=== PATIENT | male | born 1980 | race Caucasian/White ===

== ENCOUNTER → 2020-04-10 13:46 | Outpatient (BNVA) | payer OTHER, SELFPAY | PROVIDERS: Visit Provider Physician Assistant Medical | DX: M51.26 Other intervertebral disc displacement, lumbar region (principal) | CPT/HCPCS: 99202 ==

== ENCOUNTER → 2020-04-14 14:04 | Outpatient (BNVA) | payer OTHER, SELFPAY | PROVIDERS: Visit Provider Physician Assistant | DX: M51.27 Other intervertebral disc displacement, lumbosacral region (principal) | CPT/HCPCS: 99213 ==

== ENCOUNTER → 2020-04-21 09:12 | Outpatient (BNVA) | payer OTHER, SELFPAY | PROVIDERS: Visit Provider Physician Assistant | DX: S39.012D Strain of muscle, fascia and tendon of lower back, subsequent encounter (principal); X58.XXXD Exposure to other specified factors, subsequent encounter | CPT/HCPCS: 99214 ==

== ENCOUNTER → 2020-05-05 09:15 | Outpatient (BNVA) | payer OTHER, SELFPAY | PROVIDERS: Visit Provider Physician Assistant | DX: S39.92XD Unspecified injury of lower back, subsequent encounter (principal); X58.XXXD Exposure to other specified factors, subsequent encounter | CPT/HCPCS: 99213 ==

== ENCOUNTER → 2020-05-19 09:02 | Outpatient (BNVA) | payer OTHER, SELFPAY | PROVIDERS: Visit Provider Physician Assistant | DX: S39.92XD Unspecified injury of lower back, subsequent encounter (principal); X58.XXXD Exposure to other specified factors, subsequent encounter | CPT/HCPCS: 99213 ==

== ENCOUNTER 2023-01-28 10:55 | Outpatient (AMB) | payer BC, SELFPAY ==
--- NOTE | 2023-01-28 12:14 | MHC.OFFWIV ---
Intake Vital Signs 01/28/23 12:15 Height 5 ft 7 in Weight 169 lb BMI 26.5 BP 100/66 Blood Pressure Location Rt brachial Position Sitting Pulse 68 Pulse Source Pulse Oximeter Temp 97.8 F Temp Source Oral Pulse Oximetry (%) 97 Oxygen Delivery Method Room Air Intake Visit Reasons: EP, Left eye itchiness, swelling Intake Note: Pt is here today c/o Lt eye itchiness and swollen Patient Tobacco Use Status: Never used Tobacco Allergies No Known Allergies Allergy (Unverified 01/28/23 12:18) Do you need a note to return to daycare/school/sports/work: No HPI HPI Comments History of Present Illness Details 42-year-old male who presents with left eye irritation. Patient states this done sneezing his eyes several days ago and since then he has had eye that irritation hemorrhoid itching redness and swelling. Denies any vision changes or vision loss PFSH Social History Patient Tobacco Use Status: Never used Tobacco Review of Systems Eyes Reports irritation and Reports itchy eyes Aller/Immun Reports itchy eyes Physical Exam Vital Signs: Last Vital Signs Temp 97.8 F 01/28/23 12:15 Pulse 68 01/28/23 12:15 BP 100/66 01/28/23 12:15 Pulse Ox 97 01/28/23 12:15 Oxygen Delivery Method Room Air 01/28/23 12:15 BMI result Body Mass Index 26.5 Const General: cooperative, healthy appearing, no acute distress and alert Orientation/consciousness: patient oriented x3 Limitations: no limitations HEENT Other: Mild swelling of the upper left eyelid. No evidence of a stye Head: Yes normal to inspection Ears: hearing grossly normal bilaterally General nose exam: Normal external nose present Resp Effort & Inspection: normal respiratory effort and able to speak in complete sentences Cardio Rate: regular rate Skin General skin exam: no rashes or lesions noted Neuro General: patient oriented x3 Extrem General: Yes normal to inspection Assessment & Plan Assessment & Plan (1) Conjunctivitis: Code(s): H10.9 - Unspecified conjunctivitis Qualifiers: Acute conjunctivitis type: unspecified Conjunctivitis type: acute Laterality: left Qualified Code(s): H10.32 - Unspecified acute conjunctivitis, left eye Plan: Suspect viral versus bacterial conjunctivitis will prescribe erythromycin ointment Discharge instructions, follow up and treatment are discussed with patient in my usual fashion. Alternatives in treatment are also discussed. The patient will return for worsening symptoms or as needed. Advised that any labs/imaging ordered will be followed up on and contact made if further treatment needed. Counseled that patient's condition may require further evaluation and/or treatment. Symptoms of concern for worsening disorder discussed in detail in my customary manner. Patient does verbalize understanding of the plan, there are no apparent barriers to communication. The patient is given the opportunity to ask questions and have them answered to his/her satisfaction Medications: New erythromycin 0.5 inches ophthalmic (eye) BID 10 days 3.5 grams 0RF Coding Level of Care Code Est Pt Level 3 (30011) Diagnoses Acute conjunctivitis of left eye, unspecified acute conjunctivitis type H10.32 Acute conjunctivitis type: unspecified Conjunctivitis type: acute Laterality: left
[2023-01-28 12:15] VITALS: BP 100/66; PULSE 68; TEMP 36.6; O2SAT 97; BMI 26.5
== END 2023-01-28 12:30 | disposition home or self-care (01) ==
PROVIDERS: Visit Provider Physician Assistant
DX: H10.32 Unspecified acute conjunctivitis, left eye (principal)
CPT/HCPCS: 99213